=== PATIENT | male | born 1975 | race Caucasian/White ===

== ENCOUNTER 2018-10-10 18:08 | Emergency (ER) | payer SELFPAY ==
--- NOTE | 2018-10-10 18:11 | PDOC ---
Rapid Medical Evaluation Time Seen by Provider: 10/10/18 18:10 Medical Evaluation: Allergies Allergy/AdvReac Type Severity Reaction Status Date / Time No Known Allergies Allergy Verified 10/10/18 18:10 10/10/18 18:10 I have performed a brief in-person evaluation of this patient. The patient presents with a chief complaint of: suprapubic pressure x4 days Pertinent physical exam findings: suprapubic tenderness I have ordered the following: urine The patient will proceed to the ED for further evaluation. Discharge Disposition - Diagnosis Suprapubic abdominal pain - Referrals - Patient Instructions - Post Discharge Activity
[2018-10-10 18:13] VITALS: BP 124/77; PULSE 75; TEMP 98.3; BMI 29.2
--- NOTE | 2018-10-10 19:51 | PDOC ---
*Physical Exam - Vital Signs Last Vital Signs Temp Pulse Resp BP Pulse Ox 98.3 F 75 18 124/77 100 10/10/18 18:11 10/10/18 18:11 10/10/18 18:11 10/10/18 18:11 10/10/18 18:11 Medical Decision Making - Medical Decision Making 10/10/18 19:49 Patient seen by the advanced practice provider under my direct supervision. Ancillary testing reviewed as necessary. I agree with plan as outlined by the advanced practice provider. *DC/Admit/Observation/Transfer Diagnosis at time of Disposition: Suprapubic abdominal pain - Referrals - Patient Instructions - Post Discharge Activity
[2018-10-10 20:02] LABS: PH,URINE 6.5 (5.0-8.0); URINE APPEARANCE CLEAR; URINE BILIRUBIN NEGATIVE (NEGATIVE); URINE COLOR YELLOW; URINE GLUCOSE (UA) NEGATIVE (NEGATIVE); URINE KETONE NEGATIVE (NEGATIVE); URINE LEUK ESTERASE NEGATIVE (NEGATIVE); URINE NITRITE NEGATIVE (NEGATIVE); URINE PROTEIN NEGATIVE (NEGATIVE); URINE UROBILINOGEN 0.2 mg/dL (0.2-1.0)
--- NOTE | 2018-10-10 20:21 | PDOC ---
History of Present Illness - General Chief Complaint: Urinary Problem Stated Complaint: DIZZINESS Time Seen by Provider: 10/10/18 18:10 History Source: Patient - History of Present Illness Initial Comments: 10/10/18 20:35 43-year-old male complaining of frequency urination, penile pain prior to urinating. Patient reports a history of this and has seen urology in the past. Denies hematuria, flank pain, testicular pain, abdominal pain, fevers/ chills.Patient is concerned for hyperglycemia due to frequency of urination. Past History - Past Medical History Allergies/Adverse Reactions: Allergies Allergy/AdvReac Type Severity Reaction Status Date / Time No Known Allergies Allergy Verified 10/10/18 18:10 Home Medications: Ambulatory Orders NK [No Known Home Medication] 10/10/18 COPD: No - Immunization History Immunization Up to Date: No - Suicide/Smoking/Psychosocial Hx Smoking History: Never smoked Hx Alcohol Use: No Drug/Substance Use Hx: No Substance Use Type: None Review of Systems - Review of Systems Able to Perform ROS?: Yes Is the patient limited Belgian proficient: No Constitutional: No: Symptoms Reported, See HPI, Chills, Diaphoresis, Fever, Loss of Appetite, Malaise, Night Sweats, Weakness, Weight Stable, Unintentional Wgt. Loss, Unexplained wgt Loss, Other : No: Symptoms Reported, See HPI, Burning, Dysuria, Discharge, Frequency, Flank Pain, Hematuria, Incontinence, Pain, Urgency, Testicular Mass, Testicular Swelling, Lesions, Testicular Pain, Other *Physical Exam - Vital Signs Last Vital Signs Temp Pulse Resp BP Pulse Ox 98.3 F 75 18 124/77 100 10/10/18 18:11 10/10/18 18:11 10/10/18 18:11 10/10/18 18:11 10/10/18 18:11 - Physical Exam General Appearance: Yes: Appropriately Dressed Gastrointestinal/Abdominal: positive: Normal Bowel Sounds, Soft. negative: Tender Male Genitalia: positive: normal genitalia, other (uncircumcised. No penile discharge no balanitisor smegma noted.). negative: testicular tenderness, inguinal hernia Musculoskeletal: positive: Normal Inspection. negative: CVA Tenderness Extremity: positive: Normal Capillary Refill, Normal Inspection, Normal Range of Motion Integumentary: positive: Normal Color, Dry, Warm Neurologic: positive: Fully Oriented, Alert, Normal Mood/Affect ED Treatment Course - ADDITIONAL ORDERS Additional order review: Laboratory Results 10/10/18 18:36 Urine Color Yellow Urine Appearance Clear Urine pH 6.5 Ur Specific [place] 1.002 L Urine Protein Negative Urine Glucose (UA) Negative Urine Ketones Negative Urine Blood Negative Urine Nitrite Negative Urine Bilirubin Negative Urine Urobilinogen 0.2 Ur Leukocyte Esterase Negative Progress Note - Progress Note Progress Note: frequency urination: UA urine culture gC chlamydia fingerstick blood glucose *DC/Admit/Observation/Transfer Diagnosis at time of Disposition: Urinary frequency - Discharge Dispostion Disposition: HOME - Referrals Referrals: Mark Lee MD [Staff Physician] - Call tomorrow - Patient Instructions Printed Discharge Instructions: DI for Dysuria -- Adult Additional Instructions: drink plenty of fluids. follow-up with the urologist as soon as possible. Return to the emergency room for any worsening symptoms. - Post Discharge Activity Forms/Work/School Notes: Back to Work
== END 2018-10-10 20:43 | disposition home or self-care (01) ==
LOC: JER 18:08
DX: R35.0 Frequency of micturition (principal)
CPT/HCPCS: 36415; 81003; 82962; 87086; 87491; 87591; 99282-25

== ENCOUNTER 2024-03-04 10:58 | Emergency (ER) | payer SELFPAY ==
[2024-03-04 11:02] VITALS: BP 122/81; PULSE 72; RESP 18; TEMP 98.6; BMI 27.3
[2024-03-04 11:56] LABS: URINE APPEARANCE CLEAR; URINE BILIRUBIN NEGATIVE (NEGATIVE); URINE COLOR YELLOW; URINE GLUCOSE (UA) NEGATIVE (NEGATIVE); URINE KETONE NEGATIVE (NEGATIVE); URINE LEUK ESTERASE NEGATIVE (NEGATIVE); URINE NITRITE NEGATIVE (NEGATIVE); URINE PROTEIN NEGATIVE (NEGATIVE); URINE UROBILINOGEN 0.2 mg/dL (0.2-1.0)
[2024-03-04] MEDS: ACETAMINOPHEN 325 MG TABLET (FP) PO ONE (14:49)
[2024-03-04] MEDS ORDERED: ACETAMINOPHEN 325 MG TABLET (FP) ONE (14:49)
[2024-03-04 15:00] LABS: BASO % 0.6 % (0-2.0); EOS % 1.1 % (0-4.5); HEMATOCRIT 46.7 % (35.4-49); HEMOGLOBIN 16.1 GM/dL (11.7-16.9); LYMPH % 12.3 % (8-40); MCH 31.6 pg (25.7-33.7); MCHC 34.5 g/dl (32.0-35.9); MEAN CELL VOLUME 91.6 fl (80-96); MONO % 9.5 % (3.8-10.2); NEUT % 76.5 % (42.8-82.8); PLATELET COUNT 223 10^3/uL (134-434); RBC 5.09 M/mm3 (4.00-5.60); RDW 13.1 % (11.9-15.9); WHITE BLOOD COUNT 7.6 K/mm3 (4.0-10.0)
[2024-03-04 15:22] LABS: POTASSIUM 4.2 mmol/L (3.5-5.1)
[2024-03-04 15:23] LABS: CALCIUM 9.4 mg/dL (8.5-10.1)
[2024-03-04 15:24] LABS: ALBUMIN 4.1 g/dl (3.4-5.0); BLOOD UREA NITROGEN 11.1 mg/dL (7-18)
[2024-03-04 15:28] LABS: BILIRUBIN,TOTAL 0.5 mg/dL (0.2-1); TOT PROT 7.8 g/dl (6.4-8.2)
== END 2024-03-04 17:36 | disposition home or self-care (01) ==
LOC: JERFT 10:58
DX: K59.00 Constipation, unspecified (principal); R10.32 Left lower quadrant pain; R35.0 Frequency of micturition; N43.3 Hydrocele, unspecified
CPT/HCPCS: 36415; 74176-TC; 76870-TC; 80053; 81003; 85025; 87086; 99285-25